=== PATIENT | male | born 1985 | race Caucasian/White ===

== ENCOUNTER 2016-08-27 19:43 | Emergency (ER) | payer SELFPAY ==
[2016-08-27] MEDS ORDERED: IBUPROFEN 800 MG TABLET PO ONE (19:57)
--- NOTE | 2016-08-27 20:00 | ER Document Report ---
ED Medical Screen (RME) - General Chief Complaint: Abscess Stated Complaint: ABSESS Time seen by provider: 19:57 Mode of Arrival: Ambulatory Information source: Patient Notes: 31-year-old male presents to ED for an abscess to the left chest approximately 6 cm bright red for a tender for about 3 weeks slowly getting worse. Lungs clear. I have greeted and performed a rapid initial assessment of this patient. A comprehensive ED assessment and evaluation of the patient, analysis of test results and completion of medical decision making process will be conducted by an additional ED providers. - Related Data Allergies/Adverse Reactions: No Known Allergies Allergy (Unverified 08/27/16 19:57) Physical Exam - Vital signs Vitals: Temp Pulse Resp BP Pulse Ox 99.3 F 111 H 21 H 153/102 H 97 08/27/16 19:51 08/27/16 19:51 08/27/16 19:51 08/27/16 19:51 08/27/16 19:51 Course - Vital Signs Vital signs: Temp Pulse Resp BP Pulse Ox 99.3 F 111 H 21 H 153/102 H 97 08/27/16 19:51 08/27/16 19:51 08/27/16 19:51 08/27/16 19:51 08/27/16 19:51
[2016-08-27] MEDS ORDERED: LIDOCAINE 1% INJ-PF (10 MG/ML) 30 ML SDV INJ ONE (20:18)
[2016-08-27] MEDS ORDERED: OXYCODONE-ACETAMINOPHEN 5-325 MG TABLET PO ONE (20:33)
--- NOTE | 2016-08-27 20:38 | ER Document Report ---
ED Skin Rash/Insect Bite/Abscs - General Chief Complaint: Abscess Stated Complaint: ABSESS Time seen by provider: 20:34 Mode of Arrival: Ambulatory Information source: Patient Notes: 31-year-old male presents to ED for an abscess to his left chest that is purple 6 cm states it is been tender for about 3 weeks but getting worse last couple days. States he's had one abscess before but nothing is because this - HPI Patient complains to provider of: Tender/swollen area Onset: Other Onset/Duration: Gradual - 3 weeks Quality of pain: Achy, Burning, Fullness, Sharp, Stabbing, Throbbing Severity: Moderate Pain Level: 3 Skin Character: Abscess, Erythema, Warm Skin Temperature: Warm Quality of rash: Painful Identify cause: No Exacerbated by: Movement, Walking Relieved by: Denies Similar symptoms previously: Yes Recently seen / treated by doctor: No - Related Data Allergies/Adverse Reactions: No Known Allergies Allergy (Unverified 08/27/16 19:57) Past Medical History - General Information source: Patient - Social History Smoking Status: Current Every Day Smoker Cigarette use (# per day): Yes - pack per day Chew tobacco use (# tins/day): No Smoking Education Provided: Yes - less than 2 minutes Frequency of alcohol use: Rare Drug Abuse: None Occupation: construction Lives with: Family Family History: CAD, DM, Hyperlipidemia, Hypertension, Malignancy - Hodgkin's lymphoma - Past Medical History Cardiac Medical History: Reports: None Pulmonary Medical History: Reports: None EENT Medical History: Reports: None Neurological Medical History: Reports: None Endocrine Medical History: Reports: None Renal/ Medical History: Reports: None Malignancy Medical History: Reports None GI Medical History: Reports: None Musculoskeltal Medical History: Reports None Skin Medical History: Reports Hx Cellulitis Psychiatric Medical History: Reports: None Traumatic Medical History: Reports: None Infectious Medical History: Reports: None Past Surgical History: Reports: Hx Appendectomy Review of Systems - Review of Systems Constitutional: No symptoms reported EENT: No symptoms reported Cardiovascular: No symptoms reported Respiratory: No symptoms reported Gastrointestinal: No symptoms reported Genitourinary: No symptoms reported Male Genitourinary: No symptoms reported Musculoskeletal: No symptoms reported Skin: Other - Abscess to left chest Hematologic/Lymphatic: No symptoms reported Neurological/Psychological: No symptoms reported -: Yes All other systems reviewed and negative Physical Exam - Vital signs Vitals: Temp Pulse Resp BP Pulse Ox 99.3 F 111 H 21 H 153/102 H 97 08/27/16 19:51 08/27/16 19:51 08/27/16 19:51 08/27/16 19:51 08/27/16 19:51 Interpretation: Normal - General General appearance: Appears well, Alert - HEENT Head: Normocephalic, Atraumatic Eyes: Normal Pupils: PERRL - Respiratory Respiratory status: No respiratory distress Chest status: Nontender Breath sounds: Normal Chest palpation: Normal - Cardiovascular Rhythm: Regular Heart sounds: Normal auscultation Murmur: No - Abdominal Inspection: Normal Distension: No distension Bowel sounds: Normal Tenderness: Nontender Organomegaly: No organomegaly - Back Back: Normal, Nontender - Extremities General upper extremity: Normal inspection, Nontender, Normal color, Normal ROM , Normal temperature General lower extremity: Normal inspection, Nontender, Normal color, Normal ROM , Normal temperature, Normal weight bearing. No: Yolie's sign - Neurological Neuro grossly intact: Yes Cognition: Normal Orientation: AAOx4 Yung Coma Scale Eye Opening: Spontaneous [place] Coma Scale Verbal: Oriented Yung Coma Scale Motor: Obeys Commands Yung Coma Scale Total: 15 Speech: Normal Motor strength normal: LUE, RUE, LLE, RLE Sensory: Normal - Psychological Associated symptoms: Normal affect, Normal mood - Skin Skin Temperature: Warm Skin Moisture: Dry Skin Color: Normal Skin irregularity: Abscess, Erythema Location of irregularity: Abdomen Character of irregularity: Erythematous Irregularity with: Swelling, Tenderness, Warmth Course - Re-evaluation Re-evalutation: 08/27/16 21:34 Patient treated with Percocet 30 minutes prior to I&D of abscess. Patient was treated with Septra DS and Keflex after the I&D. Patient discharged home with a prescription for Percocet Keflex and Septra. Patient instructed to return to the ED in 48 hours to have abscess reexamined due to the size and location. - Vital Signs Vital signs: Temp Pulse Resp BP Pulse Ox 98.3 F 80 18 142/91 H 95 08/27/16 21:40 08/27/16 21:40 08/27/16 21:40 08/27/16 21:40 08/27/16 21:40 Procedures - Incision and Drainage Left Chest Time completed: 21:33 Type: Simple Anesthetic type: 1% Lidocaine mL's of anesthetic: 8 Blade size: 11 I&D procedure: Iodoform packing placed - Surgical scrub, Other Incision Method: Incision made by scalpel Amount/type of drainage: copious amounts of purulent bloody drainage Adult Front & Back picture: 1 - 6 cm abscess Discharge - Discharge Clinical Impression: abscess to left chest wall Condition: Stable Disposition: HOME, SELF-CARE Instructions: Family Physicians / Practices Additional Instructions: ABSCESS: You have an abscess (boil). This a pus-forming infection, usually due to staph. Some boils may be left to drain on their own, but most require lancing. From the time the tender lump first appears, it may be three or four days before the abscess is ready to le. Local heat and rest help at this stage of treatment. An antibiotic may prevent spread of the infection. Once the abscess is opened, packing may be placed into it. This is done so pus is not sealed inside by premature closure of the cavity. The packing will be removed at your follow-up visit or you may be advised to remove it yourself at home. Sometimes this packing must be replaced a few times during healing. The wound will heal with surprisingly little scar. Depending on the size and location of an abscess, healing can take one to four weeks. You may shower and wash the area around the incision site two or three times a day. Antibiotics may be prescribed, but are usually not necessary after an abscess has been drained. If you develop fever, chills, worsening pain, or increasing swelling in the area, call the doctor or return immediately. POST INCISION AND DRAINAGE: You have had an incision made to allow drainage of an abscess. The incision must remain open so that pus and debris can drain from the wound. If the abscess cavity is large, packing is placed. This keeps the tissues from collapsing and trapping pus inside, while the body shrinks the cavity. The packing may need to be replaced every day or two. The physician will instruct you on the packing. Keep a bulky dressing over the area. Replace it if it becomes saturated with blood or pus. Do not disturb the packing (if present). You may shower and cleanse the area with gentle soap and warm water two or three times a day. Local warmth may be soothing, and may promote faster healing. Return if you develop high fever or chills, or if you note spreading redness, increasing swelling, or increasing tenderness. ORAL NARCOTIC MEDICATION: You have been given a prescription for pain control. This medication is a narcotic. It's best taken with food, as nausea can result if taken on an empty stomach. Don't operate machinery or drive within six hours of taking this medication. Do not combine this medicine with alcohol, or with any medication which can cause sedation (such as cold tablets or sleeping pills) unless you get permission from the physician. Narcotics tend to cause constipation. If possible, drink plenty of fluids and eat a diet high in fiber and fruits. CEPHALEXIN: The antibiotic you've been prescribed is a member of the cephalosporin class. This type of antibiotic covers a wide variety of infections, including those of the skin, lungs, and urinary tract. It's useful for staph infections. This antibiotic is slightly similar to the penicillin family. In rare cases , a person who is allergic to penicillin will also be allergic to this medication. If you have had a severe allergic reaction to penicillin, and have not taken this antibiotic since that time, notify your doctor. Antibiotics which cover many germs ("broad spectrum" antibiotics) are more likely to cause diarrhea or "yeast" infections. Women prone to vaginal yeast problems may suffer an attack after taking this antibiotic. In infants, oral thrush (white spots "stuck" on the cheek) or yeast diaper rash may result. See your doctor if these problems occur. Call at once if you develop itching, hives , shortness of breath, or lightheadedness. TRIMETHOPRIM-SULFA: You have been given a prescription for trimethoprim-sulfa (TMS, Septra, Bactrim). This is a combination antibiotic of the sulfa class, often used for urinary tract infections, middle ear infections, bronchitis, shigella intestinal infection, and Pneumocystis pneumonia. TMS is usually well-tolerated. Occasional side effects include nausea and decreased appetite. Septra is not recommended for infants less than two months of age. Do not take this medication if you have experienced severe side effects or allergy to sulfa medicine. You should stop this medicine at once and contact your physician if you develop any rash, joint pain, shortness of breath, bruising, or jaundice ( yellow color in the skin), or if you develop any other new or unusual symptoms. FOLLOW-UP CARE: Most simple abscesses will not require a follow up visit. If you had packing placed in the abscess, remove it as instructed by the physician. If you have been referred to a physician for follow-up care, call the physicians office for an appointment as you were instructed or within the next two days. If you experience worsening or a significant change in your symptoms, return to the Emergency Department at any time for re-evaluation. Please follow-up in 48 hours to have your abscess we evaluated sooner for any increase in fever, pain, or any difficulty breathing. Prescriptions: Oxycodone HCl/Acetaminophen [Percocet 5-325 mg Tablet] 1 tab PO Q6HP PRN #15 tab PRN Reason: Cephalexin Monohydrate [Keflex 500 mg Capsule] 500 mg PO QID #20 capsule Sulfamethoxazole/Trimethoprim [Septra-Ds 800-160 mg Tablet] 1 tab PO BID #20 tablet Forms: Elevated Blood Pressure, Smoking Cessation Education, Return to Work
[2016-08-27] MEDS ORDERED: SULFAMETHOXAZOLE/TRIMETHOPRIM 800-160 MG TABLET PO ONE (21:32)
[2016-08-27] MEDS ORDERED: CEPHALEXIN 500 MG CAPSULE PO ONE (21:32)
[2016-08-27 21:47] VITALS: BP 142/91
== END 2016-08-27 22:06 | disposition home or self-care (01) ==
LOC: ER 19:43
PROC: 0H95XZZ Drainage of Chest Skin, External Approach (ICD-10-PCS; principal; 2016-08-27)
DX: L02.213 Cutaneous abscess of chest wall (principal); F17.210 Nicotine dependence, cigarettes, uncomplicated; Z71.6 Tobacco abuse counseling
CPT/HCPCS: 10060; 99283; 87070; 87205; 87075; 87077; 87186; J3490

== ENCOUNTER 2016-08-29 19:05 | Emergency (ER) | payer SELFPAY | END 2016-08-30 00:06 | disposition left against medical advice (07) | LOC: ER 19:05 | DX: Z53.21 Procedure and treatment not carried out due to patient leaving prior to being seen by health care provider (principal) ==